=== PATIENT | male | born 1965 | race Caucasian/White ===

== ENCOUNTER 2017-08-01 15:26 | Emergency (ER) | payer OTHER ==
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
[2017-08-01 15:57] VITALS: BP 118/86
[2017-08-01] MEDS ORDERED: KETOROLAC TROMETHAMINE 60 MG/2 ML VIAL IM ONE (15:57)
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
== END 2017-08-01 17:05 | disposition home or self-care (01) ==
LOC: ED 15:26
DX: M54.5 Low back pain (principal); S69.92XA Unspecified injury of left wrist, hand and finger(s), initial encounter; V89.2XXA Person injured in unspecified motor-vehicle accident, traffic, initial encounter; Y93.I9 Activity, other involving external motion; Y92.9 Unspecified place or not applicable
CPT/HCPCS: 72110; 73130; 73502; J1885; 96372; 99283